=== PATIENT | female | born 1960 | race Caucasian/White ===

== ENCOUNTER → 2025-02-02 | Outpatient (CLI) | payer BC, SELFPAY ==
--- NOTE | 2025-02-02 14:29 | EKG_ITS ---
[facility] Test Date: 2025-02-02 Pat Name: ABBIE MASCORRO Department: Room: - Gender: Female Crew Supervisor: CHERYL : 1960 Requested By: Alhaji Borden Order Number: [id number] Reading MD: Alhaji Borden Measurements Intervals Gary Rate: 78 P: 31 IA: 166 QRS: -60 QRSD: 93 T: 7 QT: 367 QTc: 420 Interpretive Statements SINUS RHYTHM POSSIBLE LEFT ATRIAL ENLARGEMENT [-0.1mV P WAVE IN V1/V2] PATTERN CONSISTENT WITH PULMONARY DISEASE INCOMPLETE RIGHT BUNDLE BRANCH BLOCK [90+ ms QRS DURATION, TERMINAL R IN V1/V2, 40+ ms S IN I/aVL/V4/V5/V6] LEFT ANTERIOR FASCICULAR BLOCK [QRS AXIS <= -45, QR IN I, RS IN II] No previous ECG available for comparison [id number]
== END | disposition home or self-care (01) ==
PROVIDERS: PCP Family Medicine; Referring Provider Family Medicine; Visit Provider Family Medicine
DX: Z01.810 Encounter for preprocedural cardiovascular examination (principal); M25.552 Pain in left hip
CPT/HCPCS: 93005